=== PATIENT | male | born 1955 | race Caucasian/White ===

== ENCOUNTER 2017-07-22 14:17 | Inpatient (IN) | payer OTHER ==
[~2017-07-22] VITALS: Ht 172.7 cm; Wt 103.2 kg
[~2017-07-22 14:17] MED LIST: Amaryl PO; Aspirin E.C. PO; GLIMEPIRIDE4 MG PO; HYDROCHLOROTHIA25 MG PO; Hydrodiuril,Oretic,E PO; JANTOVEN5 MG PO; LISINOPRIL40 MG PO; METFORMIN HCL1000 M1 PO
[2017-07-22 15:26] LABS: HEMATOCRIT 30.1 % (38.0-50.0); MCH 28.1 PG (29.0-34.0); MCHC 32.2 G/DL (30.0-36.0); MCV 87.2 FL (86-99); MEAN PLAT.VOLUME 10.5 uM^3 (9.0-12.4); PLATELET COUNT 435 K/uL (156-360); RBC DIS.WIDTH-SD 48.5 % (39-53); RED BLOOD COUNT 3.45 M/uL (4.00-5.50); WHITE BLOOD COUNT 28.3 K/uL (4.1-10.2)
[2017-07-22 15:39] LABS: CHLORIDE 104 mEq/L (99-109); POTASSIUM 5.6 mEq/L (3.7-5.4); SODIUM 130 mEq/L (136-147)
[2017-07-22 15:41] LABS: GLUCOSE 393 mg/dL (70-99)
[2017-07-22 15:42] LABS: ANION GAP 11 MEQ/L (2-14)
[2017-07-22 15:44] LABS: GFR ESTIMATE (CALCULATED) 19 mL/min/
[2017-07-22 15:45] LABS: TROP-I INTERPRETATION NEGATIVE; TROPONIN-I < 0.01 ng/mL (0.0-0.30); UREA NITROGEN (BUN) 92 mg/dL (9-23)
[2017-07-22] MEDS ORDERED: JANTOVEN1 MG PO (17:46)
[2017-07-22] MEDS ORDERED: AMARYL4 MG PO (17:53)
[2017-07-22] MEDS ORDERED: LANTUS 3 M100 UNITS1 SC (17:54)
[2017-07-22] MEDS ORDERED: HUMALOG100 UNIT/2 SC (17:56)
[2017-07-22] MEDS ORDERED: PERCOCET 5/31 TABLET PO (17:56)
[2017-07-22] MEDS ORDERED: LIPITOR40 MG PO (17:57)
[2017-07-22] MEDS ORDERED: LISINOPRIL40 MG PO (18:34)
[2017-07-22 22:03] VITALS: BP 110/50
[2017-07-23 03:35] VITALS: BP 120/76
[2017-07-23 04:48] LABS: EOSINOPHIL (%) 0 % (0-5); HEMATOCRIT 25.9 % (38.0-50.0); IMMATURE GRANULOCYTE (%) 1.3 % (0.0-0.7); IMMATURE GRANULOCYTE COUNT 0.3 K/uL; INSTRUMENT ABS NEUTROPHIL CT 18.5 K/uL; LYMPHOCYTE COUNT 1.4 K/uL (1.0-2.8); MCH 27.6 PG (29.0-34.0); MEAN PLAT.VOLUME 10.6 uM^3 (9.0-12.4); MONOCYTE (%) 8.5 % (3-12); MONOCYTE COUNT 1.9 K/uL (0-0.8); NEUTROPHIL (%) 83.6 % (45-76); NEUTROPHIL COUNT 18.5 K/uL (1.8-6.4); PLATELET COUNT 375 K/uL (156-360); RBC DIS.WIDTH-CV 14.9 % (11.8-14.6); RBC DIS.WIDTH-SD 47.3 % (39-53); RED BLOOD COUNT 3.01 M/uL (4.00-5.50); WHITE BLOOD COUNT 22.2 K/uL (4.1-10.2)
[2017-07-23 05:03] LABS: CHLORIDE 114 mEq/L (99-109); SODIUM 136 mEq/L (136-147)
[2017-07-23 05:05] LABS: GLUCOSE 190 mg/dL (70-99)
[2017-07-23 05:06] LABS: ANION GAP 7 MEQ/L (2-14)
[2017-07-23 05:09] LABS: GFR ESTIMATE (CALCULATED) 32 mL/min/; UREA NITROGEN (BUN) 81 mg/dL (9-23)
[2017-07-23 07:20] VITALS: BP 108/49
[2017-07-23 08:09] LABS: POINT-OF-CARE METER ID UU14174216
[2017-07-23 09:44] LABS: PROTHROMBIN TIME 107.5 SEC (10.2-12.9)
[2017-07-23 09:50] LABS: INTER. NORMALIZED RATIO 9.4
[2017-07-23 11:15] VITALS: BP 107/54
[2017-07-23 11:24] LABS: POINT-OF-CARE METER ID UU14174216
[2017-07-23 15:57] VITALS: BP 98/52
[2017-07-23 16:47] LABS: POINT-OF-CARE METER ID UU13113725
[2017-07-23 21:28] LABS: POINT-OF-CARE METER ID UU13113725
[2017-07-24 05:44] LABS: POINT-OF-CARE METER ID UU13113725
[2017-07-24 06:09] LABS: HEMATOCRIT 23.7 % (38.0-50.0); MCH 28.3 PG (29.0-34.0); MCHC 32.5 G/DL (30.0-36.0); MCV 87.1 FL (86-99); MEAN PLAT.VOLUME 10.2 uM^3 (9.0-12.4); PLATELET COUNT 353 K/uL (156-360); RBC DIS.WIDTH-CV 15.2 % (11.8-14.6); RBC DIS.WIDTH-SD 48.7 % (39-53); RED BLOOD COUNT 2.72 M/uL (4.00-5.50); WHITE BLOOD COUNT 15.2 K/uL (4.1-10.2)
[2017-07-24 06:35] LABS: ANION GAP 8 MEQ/L (2-14); CHLORIDE 114 MEQ/L (99-109); GFR ESTIMATE (CALCULATED) 47 mL/min/; GLUCOSE 147 mg/dL (70-99); SAMPLE HEMOLYSIS CHECK 0; SAMPLE ICTERIC CHECK 0; SAMPLE LIPEMIA CHECK 0; SODIUM 140 MEQ/L (136-147); UREA NITROGEN (BUN) 62 mg/dL (9-23)
[2017-07-24 06:42] LABS: Estimated Average Glucose 258 mg/dL (70-123); HEMOGLOBIN A1c (GLYCOHEMOGLOB) 10.6 % HGB (Below 5.7)
[2017-07-24 06:57] LABS: INTER. NORMALIZED RATIO 5.4; PROTHROMBIN TIME 61.7 SEC (10.2-12.9)
[2017-07-24 07:17] LABS: ERTH.SED.RATE 59 MM/HR (0-20)
[2017-07-24 08:17] VITALS: BP 104/59
[2017-07-24 12:04] LABS: POINT-OF-CARE METER ID UU13113774
[2017-07-24 15:21] VITALS: BP 118/56
[2017-07-24 16:30] LABS: POINT-OF-CARE METER ID UU13113725
[2017-07-24 21:21] LABS: POINT-OF-CARE METER ID UU13113774
[2017-07-24 23:54] VITALS: BP 130/60
[2017-07-25 05:43] LABS: HEMATOCRIT 25.5 % (38.0-50.0); MCH 27.1 PG (29.0-34.0); MCV 87.3 FL (86-99); RBC DIS.WIDTH-SD 48.7 % (39-53); RED BLOOD COUNT 2.92 M/uL (4.00-5.50); WHITE BLOOD COUNT 12.1 K/uL (4.1-10.2)
[2017-07-25 05:43] LABS: POINT-OF-CARE METER ID UU13113774
[2017-07-25 05:44] LABS: MEAN PLAT.VOLUME 10.3 uM^3 (9.0-12.4); PLATELET COUNT 404 K/uL (156-360)
[2017-07-25 06:27] LABS: ANION GAP 9 MEQ/L (2-14); CHLORIDE 114 MEQ/L (99-109); GFR ESTIMATE (CALCULATED) > 59 mL/min/; GLUCOSE 112 mg/dL (70-99); POTASSIUM 4.8 MEQ/L (3.7-5.4); SAMPLE HEMOLYSIS CHECK 0; SAMPLE ICTERIC CHECK 0; SAMPLE LIPEMIA CHECK 0; SODIUM 142 MEQ/L (136-147); UREA NITROGEN (BUN) 40 mg/dL (9-23)
[2017-07-25 06:34] LABS: INTER. NORMALIZED RATIO 3.7; PROTHROMBIN TIME 42.8 SEC (10.2-12.9)
[2017-07-25 07:53] VITALS: BP 115/53
[2017-07-25 12:08] LABS: POINT-OF-CARE METER ID UU13113725
[2017-07-25 15:32] LABS: ADD MIUA? NO; BILIRUBIN NEGATIVE; BLOOD NEGATIVE; COLOR YELLOW ((YELLOW)); GLUCOSE (STRIP) 50; KETONES NEGATIVE; LEUKOCYTES NEGATIVE; NITRITE NEGATIVE; PROTEIN (STRIP) NEGATIVE; SPECIFIC GRAVITY 1.015 (1.000-1.030); UROBILINOGEN 0.2 MG/DL (0.2-1.0)
[2017-07-25 16:00] VITALS: BP 139/67
[2017-07-25 16:43] LABS: UR CREATININE CONCENTRATION 87.8 MG/DL
[2017-07-25 16:59] LABS: POINT-OF-CARE METER ID UU13113725
[2017-07-25 21:02] LABS: POINT-OF-CARE METER ID UU13113774
[2017-07-25 23:07] VITALS: BP 121/53
[2017-07-26 05:49] LABS: HEMATOCRIT 28.9 % (38.0-50.0); MCH 27.4 PG (29.0-34.0); MCHC 30.4 G/DL (30.0-36.0); MEAN PLAT.VOLUME 9.8 uM^3 (9.0-12.4); PLATELET COUNT 450 K/uL (156-360); RBC DIS.WIDTH-CV 14.8 % (11.8-14.6); RBC DIS.WIDTH-SD 49.1 % (39-53); RED BLOOD COUNT 3.21 M/uL (4.00-5.50); WHITE BLOOD COUNT 12.5 K/uL (4.1-10.2)
[2017-07-26 05:57] LABS: INTER. NORMALIZED RATIO 2.5
[2017-07-26 06:00] LABS: PROTHROMBIN TIME 28.6 SEC (10.2-12.9)
[2017-07-26 06:11] LABS: POINT-OF-CARE METER ID UU13113774
[2017-07-26 06:19] LABS: ANION GAP 8 MEQ/L (2-14); CHLORIDE 114 MEQ/L (99-109); GFR ESTIMATE (CALCULATED) > 59 mL/min/; GLUCOSE 126 mg/dL (70-99); SAMPLE HEMOLYSIS CHECK 0; SAMPLE ICTERIC CHECK 0; SAMPLE LIPEMIA CHECK 0; SODIUM 142 MEQ/L (136-147); UREA NITROGEN (BUN) 24 mg/dL (9-23)
[2017-07-26 06:45] VITALS: BP 107/53
[2017-07-26 11:37] LABS: POINT-OF-CARE METER ID UU13113774
[2017-07-26 16:14] VITALS: BP 136/67
[2017-07-26 16:30] LABS: POINT-OF-CARE METER ID UU13113774
[2017-07-26 21:01] LABS: POINT-OF-CARE METER ID UU13113774
[2017-07-26 22:38] VITALS: BP 118/58
[2017-07-27 06:13] LABS: POINT-OF-CARE METER ID UU13113774
[2017-07-27 06:30] VITALS: BP 129/65
[2017-07-27 06:41] LABS: PROTHROMBIN TIME 23.5 SEC (10.2-12.9)
[2017-07-27 11:15] LABS: POINT-OF-CARE METER ID UU13113725
[2017-07-27 16:21] LABS: GLUCOSE 248 mg/dL (70-99)
[2017-07-27 21:05] LABS: POINT-OF-CARE METER ID UU13113725
[2017-07-27 22:43] VITALS: BP 128/64
[2017-07-28 06:32] LABS: HEMATOCRIT 29.5 % (38.0-50.0); MCH 27.4 PG (29.0-34.0); MCHC 30.8 G/DL (30.0-36.0); MCV 88.9 FL (86-99); MEAN PLAT.VOLUME 9.8 uM^3 (9.0-12.4); PLATELET COUNT 486 K/uL (156-360); RBC DIS.WIDTH-CV 14.5 % (11.8-14.6); RBC DIS.WIDTH-SD 46.5 % (39-53); RED BLOOD COUNT 3.32 M/uL (4.00-5.50); WHITE BLOOD COUNT 11.2 K/uL (4.1-10.2)
[2017-07-28 06:36] LABS: POINT-OF-CARE METER ID UU13113774
[2017-07-28 06:53] LABS: ANION GAP 10 MEQ/L (2-14); CHLORIDE 108 MEQ/L (99-109); GFR ESTIMATE (CALCULATED) > 59 mL/min/; GLUCOSE 139 mg/dL (70-99); MAGNESIUM 1.7 mg/dl (1.3-2.7); POTASSIUM 5.1 MEQ/L (3.7-5.4); SAMPLE HEMOLYSIS CHECK 0; SAMPLE ICTERIC CHECK 0; SAMPLE LIPEMIA CHECK 0; SODIUM 142 MEQ/L (136-147); UREA NITROGEN (BUN) 21 mg/dL (9-23)
[2017-07-28 06:54] LABS: INTER. NORMALIZED RATIO 2.6; PROTHROMBIN TIME 29.8 SEC (10.2-12.9)
[2017-07-28 07:03] VITALS: BP 138/64
[2017-07-28 09:48] LABS: POINT-OF-CARE METER ID UU13113725
[2017-07-28 11:15] LABS: POINT-OF-CARE METER ID UU13113725
[2017-07-28 15:02] VITALS: BP 148/67
[2017-07-28 16:22] LABS: POINT-OF-CARE METER ID UU13113725
[2017-07-28 21:23] LABS: POINT-OF-CARE METER ID UU13113725
[2017-07-28 23:47] VITALS: BP 130/62
[2017-07-29 00:13] VITALS: BP 130/62
[2017-07-29 05:43] LABS: INTER. NORMALIZED RATIO 3.4; PROTHROMBIN TIME 39.5 SEC (10.2-12.9)
[2017-07-29 06:12] LABS: POINT-OF-CARE METER ID UU13113774
[2017-07-29 06:55] VITALS: BP 125/83
[2017-07-29 09:14] LABS: HEMATOCRIT 26.5 % (38.0-50.0); MCHC 31.3 G/DL (30.0-36.0); MCV 89.5 FL (86-99); PLATELET COUNT 462 K/uL (156-360); RBC DIS.WIDTH-CV 14.6 % (11.8-14.6); RBC DIS.WIDTH-SD 47.6 % (39-53); RED BLOOD COUNT 2.96 M/uL (4.00-5.50); WHITE BLOOD COUNT 10.1 K/uL (4.1-10.2)
[2017-07-29 09:26] LABS: ANION GAP 10 MEQ/L (2-14); CHLORIDE 109 MEQ/L (99-109); GFR ESTIMATE (CALCULATED) > 59 mL/min/; GLUCOSE 132 mg/dL (70-99); POTASSIUM 4.5 MEQ/L (3.7-5.4); SAMPLE HEMOLYSIS CHECK 0; SAMPLE ICTERIC CHECK 0; SAMPLE LIPEMIA CHECK 0; SODIUM 143 MEQ/L (136-147); UREA NITROGEN (BUN) 17 mg/dL (9-23)
[2017-07-29 11:44] LABS: POINT-OF-CARE METER ID UU13113725
[2017-07-29 15:30] VITALS: BP 138/63
[2017-07-29 16:38] LABS: POINT-OF-CARE METER ID UU13113774
[2017-07-29 22:06] LABS: POINT-OF-CARE METER ID UU13113774
[2017-07-29 23:40] VITALS: BP 139/65
[2017-07-30 05:50] LABS: POINT-OF-CARE METER ID UU13113774
[2017-07-30 06:10] LABS: HEMATOCRIT 26.8 % (38.0-50.0); MCH 27.6 PG (29.0-34.0); MCHC 31.3 G/DL (30.0-36.0); MCV 88.2 FL (86-99); MEAN PLAT.VOLUME 9.6 uM^3 (9.0-12.4); PLATELET COUNT 461 K/uL (156-360); RBC DIS.WIDTH-CV 14.4 % (11.8-14.6); RED BLOOD COUNT 3.04 M/uL (4.00-5.50); WHITE BLOOD COUNT 9.7 K/uL (4.1-10.2)
[2017-07-30 06:33] LABS: INTER. NORMALIZED RATIO 3.3; PROTHROMBIN TIME 37.4 SEC (10.2-12.9)
[2017-07-30 06:41] LABS: ANION GAP 6 MEQ/L (2-14); CHLORIDE 108 MEQ/L (99-109); GFR ESTIMATE (CALCULATED) > 59 mL/min/; MAGNESIUM 1.6 mg/dl (1.3-2.7); POTASSIUM 4.3 MEQ/L (3.7-5.4); SAMPLE HEMOLYSIS CHECK 0; SAMPLE ICTERIC CHECK 0; SAMPLE LIPEMIA CHECK 0; SODIUM 141 MEQ/L (136-147); UREA NITROGEN (BUN) 15 mg/dL (9-23)
[2017-07-30 06:43] LABS: GLUCOSE 93 mg/dL (70-99)
[2017-07-30 07:46] VITALS: BP 144/58
[2017-07-30] MEDS ORDERED: LEVEMIR100 UNIT/2 SC (10:51)
[2017-07-30] MEDS ORDERED: SANTYL30 GM TP (10:51)
[2017-07-30] MEDS ORDERED: HYDROXYZINE PAM25 MG PO (10:51)
[2017-07-30 11:42] LABS: POINT-OF-CARE METER ID UU13113774
[2017-07-30 15:58] LABS: POINT-OF-CARE METER ID UU13113774
[2017-07-30 16:19] VITALS: BP 150/69
== END 2017-07-30 17:02 | disposition designated cancer center or children's hospital (05) | DRG 853 ==
LOC: EME 14:17 → EDOF 19:56 → 5EAST 19:56 → 4EAST 19:56 → ENRESERV 20:07 → 4EAST 21:45 → ENRESERV 07-23 10:44 → 5EAST 07-23 14:20 → ENPENDDIS 07-30 → 5EAST 07-30 17:02
PROVIDERS: Emergency Medicine; Hospitalist; Internal Medicine; Internal Medicine Nephrology
DX: A41.9 Sepsis, unspecified organism (principal); R65.20 Severe sepsis without septic shock; N17.0 Acute kidney failure with tubular necrosis; L02.212 Cutaneous abscess of back [any part, except buttock and flank]; B95.1 Streptococcus, group B, as the cause of diseases classified elsewhere; E11.69 Type 2 diabetes mellitus with other specified complication; M86.662 Other chronic osteomyelitis, left tibia and fibula; L03.116 Cellulitis of left lower limb; I87.8 Other specified disorders of veins; L97.919 Non-pressure chronic ulcer of unspecified part of right lower leg with unspecified severity; E87.2 Acidosis; L89.324 Pressure ulcer of left buttock, stage 4; E87.5 Hyperkalemia; I12.9 Hypertensive chronic kidney disease with stage 1 through stage 4 chronic kidney disease, or unspecified chronic kidney disease; E11.22 Type 2 diabetes mellitus with diabetic chronic kidney disease; N18.3 Chronic kidney disease, stage 3 (moderate); I95.9 Hypotension, unspecified; S81.802A Unspecified open wound, left lower leg, initial encounter; X58.XXXA Exposure to other specified factors, initial encounter; E11.65 Type 2 diabetes mellitus with hyperglycemia; E11.51 Type 2 diabetes mellitus with diabetic peripheral angiopathy without gangrene; E11.319 Type 2 diabetes mellitus with unspecified diabetic retinopathy without macular edema; I82.502 Chronic embolism and thrombosis of unspecified deep veins of left lower extremity; D63.8 Anemia in other chronic diseases classified elsewhere; E78.00 Pure hypercholesterolemia, unspecified; L72.3 Sebaceous cyst; R79.1 Abnormal coagulation profile; F32.9 Major depressive disorder, single episode, unspecified; E66.9 Obesity, unspecified; Z68.33 Body mass index [BMI] 33.0-33.9, adult; Z79.01 Long term (current) use of anticoagulants; Z79.4 Long term (current) use of insulin; Z82.3 Family history of stroke; Z82.49 Family history of ischemic heart disease and other diseases of the circulatory system; Z83.3 Family history of diabetes mellitus
CPT/HCPCS: 71020; 73590; 76770; 76937; 80048; 80202; 81003; 82570; 82948; 83036; 83605; 83735; 84156; 84484; 84999; 85025; 85027; 85610; 85651; 86140; 87040; 87070; 87075; 87076; 87077; 87185; 87186; 87205; 88305; 90686; 93005; 99281; 99285; A6260; J0295; J1644; J1815; J2270; J2405; J2543; J3370; J7050; J7120; Q0177

== ENCOUNTER → 2018-01-15 | Outpatient (CLI) | payer OTHER ==
[~2018-01-15] MED LIST changes: +AMARYL4 MG PO; +HUMALOG100 UNIT/2 SC; +HYDROXYZINE PAM25 MG PO; +JANTOVEN1 MG PO; +LANTUS 10100 UNITS/ SC; +LANTUS 3 M100 UNITS1 SC; +LEVEMIR100 UNIT/2 SC; +LIPITOR40 MG PO; +NOVOLOG 10100 UNITS/ SC; +PERCOCET 5/31 TABLET PO; +SANTYL30 GM TP
[2018-01-15 08:47] LABS: HEMOGLOBIN 12.2 G/DL (12.5-16.6); MCH 27.1 PG (29.0-34.0); MCHC 32.1 G/DL (30.0-36.0); MCV 84.3 FL (86-99); PLATELET COUNT 260 K/uL (156-360); RBC DIS.WIDTH-CV 15.6 % (11.8-14.6); RBC DIS.WIDTH-SD 48.1 % (39-53); RED BLOOD COUNT 4.51 M/uL (4.00-5.50); WHITE BLOOD COUNT 8.7 K/uL (4.1-10.2)
[2018-01-15 08:55] LABS: PTT 26.5 SEC (25-37)
[2018-01-15 10:54] LABS: EOSINOPHILS 0.9 % (0-5.0); LYMPHOCYTES 27.1 % (15.0-45.0); METAMYELOCYTES 0.9 %; MONOCYTES 8.4 % (0-9.0); SEG.NEUTROPHILS 62.6 % (46.0-76.0)
[2018-01-15 10:55] LABS: ANISOCYTOSIS 2+
[2018-01-15 10:56] LABS: BURR CELLS 1+; MICROCYTOSIS 1+; OVALOCYTES 2+
[2018-01-15 10:57] LABS: PLAT.SUFFICIENCY ADEQUATE
== END | disposition home or self-care (01) ==
LOC: OPR 07:56 → EDSTATUS 09:00
PROVIDERS: Nurse Practitioner
PROC: 0QBH3ZX Excision of Left Tibia, Percutaneous Approach, Diagnostic (ICD-10-PCS; principal; 2018-01-15)
DX: L97.822 Non-pressure chronic ulcer of other part of left lower leg with fat layer exposed (principal); M86.462 Chronic osteomyelitis with draining sinus, left tibia and fibula
CPT/HCPCS: 77012; 82948; 85007; 85027; 85610; 85730; 87070; 87075; 87205; J3010

== ENCOUNTER → 2018-03-25 | Outpatient (CLI) | payer MEDICARE | END | disposition home or self-care (01) | LOC: CDC 13:53 | DX: Z01.810 Encounter for preprocedural cardiovascular examination (principal); I70.25 Atherosclerosis of native arteries of other extremities with ulceration; R94.31 Abnormal electrocardiogram [ECG] [EKG] | CPT/HCPCS: 93000 ==